=== PATIENT | female | born 1960 | race Two or more races ===

== ENCOUNTER 2023-09-23 06:55 | Emergency (ER) | payer OTHER ==
[~2023-09-23] VITALS: Ht 154.9 cm; Wt 60.8 kg
[2023-09-23] MEDS ORDERED: ANASTROZOLE1 MG (07:06)
[2023-09-23] MEDS ORDERED: CARAFATE1 GM PO (07:06)
[2023-09-23] MEDS ORDERED: LOPRESSOR25 MG PO (07:07)
[2023-09-23] MEDS ORDERED: FOSAMAX70 MG PO (07:07)
[2023-09-23] MEDS ORDERED: CHILDREN'S ASPI81 MG (07:07)
[2023-09-23] MEDS ORDERED: PEPCID AC10 MG (07:07)
[2023-09-23 09:23] LABS: HEMATOCRIT 42.1 % (36.0-45.00); HEMOGLOBIN 14.5 g/dL (12.0-15.00); MEAN CELL VOLUME 86.3 fL (80.00-100.00); MEAN CORPUSCULAR HEMOGLOBIN 29.7 pg (27.00-32.0); MEAN CORPUSCULAR HGB CONC 34.4 g/dl (32.0-36.0); PLATELET COUNT 268 K/uL (150-450); RED BLOOD COUNT 4.88 M/uL (4.00-6.00); RED CELL DISTRIBUTION WIDTH 14.3 % (11.5-14.5)
[2023-09-23 10:20] LABS: URINE APPEARANCE Clear; URINE BILIRRUBIN Negative (NEGATIVE); URINE BLOOD Negative; URINE COLOR Yellow; URINE EPITHELIAL CELLS 1.6 uL (0.0-38.8); URINE GLUCOSE Negative (NEGATIVE); URINE LEUKOCYTE Negative; URINE NITRATE Negative; URINE PROTEIN Negative (NEGATIVE); URINE RBC 2.7 uL (0.0-20.8); URINE UROBILINOGEN 0.2 E.U./dl; URINE WBC 2.6 uL (0.0-23.2)
[2023-09-23 11:01] LABS: URINE BACTERIA 3.7 uL (0.0-1933)
[2023-09-23 13:11] LABS: CALCIUM 9.6 mg/dL (8.5-10.1); CREATININE SERUM 0.61 mg/dL (0.55-1.02); GFR 99.06; POTASSIUM 3.34 mEq/L (3.5-5.1)
== END 2023-09-23 14:09 | disposition home or self-care (01) ==
LOC: ER 06:55
PROVIDERS: General Practice
DX: R10.32 Left lower quadrant pain (principal); Z88.8 Allergy status to other drugs, medicaments and biological substances; Z85.3 Personal history of malignant neoplasm of breast; K57.30 Diverticulosis of large intestine without perforation or abscess without bleeding
CPT/HCPCS: 36415; 74176; 96365; 96366; 96372; 99284; J3490; J7030

== ENCOUNTER 2023-09-26 13:16 | Emergency (ER) | payer OTHER ==
[~2023-09-26] VITALS: Ht 154.9 cm; Wt 59.9 kg
[~2023-09-26 13:16] MED LIST: ANASTROZOLE1 MG; CARAFATE1 GM PO; CHILDREN'S ASPI81 MG; FOSAMAX70 MG PO; LOPRESSOR25 MG PO; PEPCID AC10 MG
[2023-09-26 16:50] LABS: URINE APPEARANCE Clear; URINE BILIRRUBIN Negative (NEGATIVE); URINE BLOOD Negative; URINE COLOR Yellow; URINE GLUCOSE Negative (NEGATIVE); URINE LEUKOCYTE Moderate; URINE NITRATE Negative; URINE PROTEIN Negative (NEGATIVE); URINE UROBILINOGEN 0.2 E.U./dl
[2023-09-26 16:51] LABS: URINE BACTERIA 33.9 uL (0.0-1933); URINE EPITHELIAL CELLS 4.3 uL (0.0-38.8); URINE WBC 80.4 uL (0.0-23.2)
[2023-09-26 16:53] LABS: URINE RBC 1.7 uL (0.0-20.8)
[2023-09-26 16:56] LABS: HEMATOCRIT 41.5 % (36.0-45.00); HEMOGLOBIN 14.4 g/dL (12.0-15.00); MEAN CELL VOLUME 85.8 fL (80.00-100.00); MEAN CORPUSCULAR HEMOGLOBIN 29.7 pg (27.00-32.0); MEAN CORPUSCULAR HGB CONC 34.6 g/dl (32.0-36.0); PLATELET COUNT 291 K/uL (150-450); RED BLOOD COUNT 4.84 M/uL (4.00-6.00); RED CELL DISTRIBUTION WIDTH 14.1 % (11.5-14.5)
[2023-09-26 17:09] LABS: ALBUMIN 4.4 gm/dL (3.4-5.0); BILIRUBIN TOTAL 0.39 mg/dL (0.3-1.2); CALCIUM 10.1 mg/dL (8.5-10.1); CREATININE SERUM 0.74 mg/dL (0.55-1.02); GFR 79.26; GLOBULINA 4.3 G/DL (2.4-3.5); POTASSIUM 3.75 mEq/L (3.5-5.1); TOTAL PROTEIN 8.7 gm/dL (6.4-8.2)
[2023-09-26] MEDS ORDERED: MACRODANTIN100 M1 PO (19:15)
[2023-09-26] MEDS ORDERED: DICLOFENAC SODI75 MG PO (19:15)
== END 2023-09-26 19:42 | disposition home or self-care (01) ==
LOC: ER
PROVIDERS: General Practice
DX: N39.0 Urinary tract infection, site not specified (principal); R10.32 Left lower quadrant pain; R10.9 Unspecified abdominal pain; I10 Essential (primary) hypertension; Z88.1 Allergy status to other antibiotic agents
CPT/HCPCS: 36415; 96365; 96366; 99282; J1885; J3490 ×2; J7030